=== PATIENT | female | born 1985 | race Hispanic/Latino ===

== ENCOUNTER 2021-01-05 18:56 | Emergency (ER) | payer SELFPAY ==
[~2021-01-05] VITALS: Ht 162.6 cm; Wt 99.3 kg
[2021-01-05 19:53] VITALS: BP 128/78
== END 2021-01-05 19:53 | disposition home or self-care (01) ==
LOC: FSED 19:16
DX: F41.9 Anxiety disorder, unspecified (principal); R94.31 Abnormal electrocardiogram [ECG] [EKG]
CPT/HCPCS: 93005; 99283

== ENCOUNTER 2021-01-11 05:40 | Emergency (ER) | payer SELFPAY ==
[~2021-01-11] VITALS: Ht 162.6 cm; Wt 96.2 kg
== END 2021-01-11 07:06 | disposition home or self-care (01) ==
LOC: FSED 06:25
DX: R07.9 Chest pain, unspecified (principal); R00.1 Bradycardia, unspecified; Z86.16 Personal history of COVID-19
CPT/HCPCS: 99282

== ENCOUNTER 2021-01-13 08:47 | Emergency (ER) | payer SELFPAY ==
[~2021-01-13] VITALS: Ht 162.6 cm; Wt 96.6 kg
[2021-01-13] MEDS ORDERED: VITAMIN C500 MG PO (09:34)
[2021-01-13] MEDS ORDERED: AMOXICILLIN250 MG PO (09:34)
[2021-01-13] MEDS ORDERED: VITAMIN B-121000 MCG PO (09:34)
[2021-01-13] MEDS ORDERED: VITAMIN D3250 MC1 (09:34)
== END 2021-01-13 12:15 | disposition home or self-care (01) ==
LOC: FSED 09:44
DX: F41.9 Anxiety disorder, unspecified (principal); G47.00 Insomnia, unspecified; Z86.16 Personal history of COVID-19; Z87.01 Personal history of pneumonia (recurrent)
CPT/HCPCS: 71046; 81003; 81025; 99283